=== PATIENT | male | born 1940 | race Caucasian/White ===

== ENCOUNTER → 2017-01-05 | Outpatient (CLI) | payer MEDICARE, OTHER ==
[~2017-01-05] MED LIST: ASPIRIN81 M1 PO; ASPIRINEC PO; EXFORGE 5-320 M1 TAB PO; HCTZ PO; HYDROCHLOROTHIA25 MG PO; LISINOPRIL PO; MICRO-K10 MEQ PO; NICOTINE TRANSD21 MG EXT; NITROGLYGERIN0.4 MG SL; PROTONIX PO; TOPROL XL PO; TOPROL XL100 MG PO; VICODIN PO; ZETIA PO
--- NOTE | ~2017-01-05 | TH ---
Unit #: [id number] #: [id number] Patient: SHARAN ALICEA [id number] [address] [address] [id number] O MR#: [id number] NAME: SHARAN ALICEA. : 1940 SEX: M STUDY DATE/TIME: UNIT: [facility] ROOM: STUDY DESCRIPTION: Nuclear Study Attending Physician: Israel Jasmine M.D. Referring Physician: Israel Jasmine M.D. Primary Care Physician: Miles Saucedo M.D. CARDIOLOGY REPORT EXAM Lexiscan Cardiolite Stress Test - Nuclear Portion PROCEDURE Using technetium 99m labeled Cardiolite, rest and stress SPECT images were obtained. Multiple SPECT images were obtained in various views including horizontal and vertical long axis and short axis views of the left ventricle. Images were obtained by gated SPECT method. The patient was administered 11.11 mCi of Cardiolite at rest. The patient was administered 31.2 mCi of Cardiolite after Lexiscan infusion was completed. On the stress images, there is normal perfusion noted. The rest images show normal perfusion. Comparing rest and stress images, there is no stress-induced ischemia noted. The left ventricular ejection fraction is calculated to be 56%. There is no focal wall motion abnormality seen. CONCLUSION 1. No stress-induced ischemia noted. 2. The left ventricular ejection fraction is calculated to be 56%. 3. There is no focal wall motion abnormality seen. 4. Normal nuclear portion of the stress test. 5. It must be noted that the patient's baseline blood pressure was very elevated at 207/88 mmHg. Dictated by... Jeni Nielson TD: 01/06/2017 05:36 JOB #: [id number] Unit #: [id number] #: [id number] Patient: SHARAN ALICEA CARDIOLOGY REPORT X Audra Soler MD <ELECTRONICALLY SIGNED> 05/14/17 1429 CARDIOLOGY REPORT
--- NOTE | ~2017-01-05 | ST ---
Unit #: [id number] #: [id number] Patient: SHARAN ALICEA [id number] [facility]. [address] [address] [id number] O MR#: [id number] NAME: SHARAN ALICEA : 1940 SEX: M STUDY DATE/TIME: 01/05/2017 UNIT: [facility] ROOM: STUDY DESCRIPTION: Attending Physician: Israel Jasmine M.D. Referring Physician: Israel Jasmine M.D. Primary Care Physician: Miles Saucedo M.D. CARDIOLOGY REPORT REASON FOR EXAM Known coronary artery disease with stent placement checkup. FINDINGS Baseline EKG shows normal sinus rhythm, rate of 68 beats per minute. Next, 0.4 mg of Lexiscan was injected per protocol followed by Cardiolite. During the test, the patient had complaints of shortness of breath and stomach cramping. He denied any complaints of chest pain. His symptoms resolved in the recovery period. There were no changes to the ST segments during the infusion. There was no ectopy. The test was stopped secondary to protocol completion. IMPRESSION 1. Negative EKG portion of Lexiscan Cardiolite. 2. No ST changes during the infusion suggestive of ischemia. No ST segment changes. 3. Complaint of shortness of breath and stomach cramping during the infusion but denied any chest pain. These symptoms resolved in the recovery period. 4. No arrhythmias. 5. The patient's blood pressure was elevated prior to initiation of the test. Resting blood pressure was 207/86. During the infusion, his pressure remained high. It did decrease somewhat into the 180s over 90s. Final blood pressure was 199/93. 6. The patient was instructed as he had his medications with him to go ahead and take his current blood pressure medications. The tech here will recheck his blood pressure prior to sending him home. 7. Please correlate with nuclear imaging. Dictated by... Negra Schuler A.P.R.N. for Jeni Nielson/torres TD: 01/05/2017 10:02 JOB #: [id number] Unit #: [id number] #: [id number] Patient: SHARAN ALICEA CARDIOLOGY REPORT X Negra Schuler APRN CARDIOLOGY REPORT
== END | disposition home or self-care (01) ==
LOC: CNUC 07:12
DX: R07.9 Chest pain, unspecified (principal); I10 Essential (primary) hypertension; Z98.61 Coronary angioplasty status
CPT/HCPCS: 78452; 93017; A9500; J2785